=== PATIENT | female | born 1950 | race Caucasian/White ===

== ENCOUNTER 2024-03-15 15:45 | Emergency (ER) | payer MEDICARE, SELFPAY ==
[2024-03-15] VITALS (19 sets, daily range): BP systolic 111–205; BP diastolic 71–120; PULSE 70–91; RESP 18; TEMP 36.9; O2SAT 94–100; BMI 21.6
--- NOTE | 2024-03-15 16:26 | ED_ITS ---
HPI - Skin/Abscess/Foreign Bdy <Chayo Mabry PA-C - Last Filed: 03/15/24 20:00> General Chief complaint: Skin/Abscess/Foreign Body Stated complaint: left pain and infected Time Seen by Provider: 03/15/24 16:18 Source: patient and family Mode of arrival: Wheelchair Limitations: no limitations History of Present Illness HPI narrative: 73-year-old female presents with left knee drainage. Apparently she underwent a total left knee replacement in April [address] Corbin Yun. She ended up having a postsurgical complication and was treated at [facility] with long- term intravenous antibiotics including vancomycin and cefepime respectively. She completed this and then presented at [facility] recently and was given a course of Bactrim 5 days oral. She is denying any fever, any new injury, she has some spontaneous drainage, she does have pain however with weightbear. She recently relocated and is now living with her son in [facility] who has been assisting with her ADLs and general care. History is also significant for hypertension, she did not take her 3 blood pressure medications today. She is denying any other complaints. All other systems are reviewed and are negative. She did bring paperwork from her previous treatment from [facility], with some lab work from February 18 or so. CRP at that time was 20.5, CBC was within normal limits. Chemistry also within normal limits this happened elevation to her alk phos. I further clarified her entire course she stated she saw Dr. Brooks and his automobile mechanic assistant in June 2023, she implied that ?he said it was the worst joint replacement he is ever seen and that the only option would be amputation as that she will never walk again with this joint replacement?. She once again consulted with Dr. Brooks when she was re-evaluated at [facility], and the patient states that ?he would not admit me and no longer wanted to see me again?. The patient also advised that she no longer would like to see Dr. Brooks. Related Data Home Medications Medication Instructions Recorded Confirmed amlodipine 5 mg tablet 10 mg PO DAILY 03/15/24 03/15/24 carvedilol phosphate 40 mg 40 mg PO DAILY 03/15/24 03/15/24 capsule,[id number] multiphase escitalopram oxalate 10 mg tablet 10 mg PO DAILY 03/15/24 03/15/24 irbesartan 300 mg tablet 300 mg PO DAILY 03/15/24 03/15/24 levothyroxine 75 mcg tablet 75 mcg PO DAILY 03/15/24 03/15/24 Previous Rx's Medication Instructions Recorded oxycodone 5 mg tablet 5 mg PO Q6H PRN pain #14 tabs 03/16/24 Allergies Allergy/AdvReac Type Severity Reaction Status Date / Time blue dye Allergy Verified 03/15/24 16:04 Review of Systems <Chayo Mabry PA-C - Last Filed: 03/15/24 20:00> Review of Systems Narrative: All other systems reviewed and are negative. Patient History <Chayo Mabry PA-C - Last Filed: 03/15/24 20:00> Social History Smoking Status: Never smoker Smoking Status: Never smoker Exam <Chayo Mabry PA-C - Last Filed: 03/15/24 20:00> Initial Vital Signs Initial Vital Signs: Vital Signs Temperature 98.4 F 03/15/24 16:04 Pulse Rate 77 03/15/24 16:04 Respiratory Rate 18 03/15/24 16:04 Blood Pressure 187/107 H 03/15/24 16:04 Pulse Oximetry 99 03/15/24 16:04 Oxygen Delivery Method Room Air 03/15/24 16:04 Vital signs reviewed and are normal except for elevated blood pressure reading in a known hypertension patient who has not taken her medications today. Const Other: Smiling, seated, nontoxic appearing, no distress, pleasantly conversing. Unable to bear weight on the left leg. Use of a PT belt utilized for transfer from chair to bed. Chest Chest: normal inspection of the chest Resp Effort & Inspection: normal respiratory effort and able to speak in complete sentences Auscultation: clear to auscultation bilaterally, no rales, no rhonchi and no wheezes Cardio Rate: regular rate Rhythm: regular rhythm Extrem Left lower extremity: knee (Draining cutaneous abscess lateral proximal knee) Details: abnormal to inspection, swelling and abnormal ROM; no cyanosis <Kain Lovett MD - Last Filed: 03/16/24 16:10> Initial Vital Signs Initial Vital Signs: Vital Signs Temperature 98.4 F 03/15/24 16:04 Pulse Rate 77 03/15/24 16:04 Respiratory Rate 18 03/15/24 16:04 Blood Pressure 187/107 H 03/15/24 16:04 Pulse Oximetry 99 03/15/24 16:04 Oxygen Delivery Method Room Air 03/15/24 16:04 <Cristina Quesada DO - Last Filed: 03/16/24 18:44> Initial Vital Signs Initial Vital Signs: Vital Signs Temperature 98.4 F 03/15/24 16:04 Pulse Rate 77 03/15/24 16:04 Respiratory Rate 18 03/15/24 16:04 Blood Pressure 187/107 H 03/15/24 16:04 Pulse Oximetry 99 03/15/24 16:04 Oxygen Delivery Method Room Air 03/15/24 16:04 Course <Chayo Mabry PA-C - Last Filed: 03/15/24 20:00> Orders Ordered: Discontinued Medications Hydrocodone Bitart/Acetaminophen (Hydrocodone/Acet 5/325 Tablet) 1 tab PO NOW ONE Stop: 03/16/24 00:12 Last Admin: 03/16/24 00:31 Dose: 1 tab Documented By: CARLOS Hydrocodone Bitart/Acetaminophen (Hydrocodone/Acet 5/325 Tablet) 1 tab PO NOW ONE Stop: 03/16/24 04:40 Last Admin: 03/16/24 04:44 Dose: 1 tab Documented By: JE Amlodipine Besylate (Amlodipine 5 Mg Tablet) 10 mg PO NOW ONE Stop: 03/15/24 18:02 Last Admin: 03/15/24 18:31 Dose: 10 mg Documented By: CARLOS Carvedilol (Carvedilol 12.5 Mg Tablet) 40 mg PO NOW ONE Stop: 03/15/24 18:19 Last Admin: 03/15/24 18:24 Dose: Not Given Documented By: CARLOS Carvedilol (Carvedilol 12.5 Mg Tablet) 12.5 mg PO NOW JOSH Last Admin: 03/15/24 18:51 Dose: 12.5 mg Documented By: CARLOS Escitalopram Oxalate (Escitalopram 10 Mg Tablet) 10 mg PO NOW ONE Stop: 03/15/24 18:03 Last Admin: 03/15/24 18:51 Dose: 10 mg Documented By: CARLOS Hydromorphone HCl (Hydromorphone 0.5 Mg Inj) 0.5 mg IV NOW ONE Stop: 03/15/24 20:25 Last Admin: 03/15/24 20:34 Dose: 0.5 mg Documented By: CARLOS Vancomycin HCl/Dextrose (Vancomycin) 1,500 mg in 300 mls @ 200 mls/hr IV NOW ONE Stop: 03/15/24 20:59 Last Infusion: 03/15/24 21:45 Dose: Infused Documented By: Admin: 03/15/24 19:59 Dose: 200 mls/hr Documented By: ALBINA Ceftriaxone Sodium 1,000 mg/ (Sodium Chloride) 100 mls @ 200 mls/hr IV NOW ONE Stop: 03/15/24 19:31 Last Infusion: 03/15/24 20:14 Dose: Infused Documented By: Admin: 03/15/24 19:40 Dose: 200 mls/hr Documented By: ALBINA Losartan Potassium (Losartan 50 Mg Tablet) 100 mg PO NOW ONE Stop: 03/15/24 18:31 Last Admin: 03/15/24 18:50 Dose: 100 mg Documented By: CARLOS Oxycodone HCl (Oxycodone Ir 5 Mg Tablet) 5 mg PO NOW ONE Stop: 03/16/24 08:00 Last Admin: 03/16/24 08:21 Dose: 5 mg Documented By: RB Consultations Consultation #1: Discussed the case with on-call orthopedics Dr. Paul who declined to participate in this patient's care stating that she needs to maintain continuity and returned to the original orthopedist, Dr. Brooks. She advise this patient likely needs an complete explant, not to touch or perform I&D of the abscess. Consultation #2: Discussed this complex patient's case with ED attending Dr. Lovett. I initiated antimicrobial therapy tonight including vancomycin 1.5gm and ceftriaxone 1gm IV. I placed a call to [facility] for potential orthopedic consultation. Vital Signs Vital signs: Vital Signs - 8 hr 03/16/24 11:24 Temperature 98.0 F Pulse Rate 78 Respiratory Rate 18 Blood Pressure 114/67 Pulse Oximetry 96 Oxygen Delivery Method Room Air <Kain Lovett MD - Last Filed: 03/16/24 16:10> Orders Ordered: Discontinued Medications Hydrocodone Bitart/Acetaminophen (Hydrocodone/Acet 5/325 Tablet) 1 tab PO NOW ONE Stop: 03/16/24 00:12 Last Admin: 03/16/24 00:31 Dose: 1 tab Documented By: CARLOS Hydrocodone Bitart/Acetaminophen (Hydrocodone/Acet 5/325 Tablet) 1 tab PO NOW ONE Stop: 03/16/24 04:40 Last Admin: 03/16/24 04:44 Dose: 1 tab Documented By: JE Amlodipine Besylate (Amlodipine 5 Mg Tablet) 10 mg PO NOW ONE Stop: 03/15/24 18:02 Last Admin: 03/15/24 18:31 Dose: 10 mg Documented By: CARLOS Carvedilol (Carvedilol 12.5 Mg Tablet) 40 mg PO NOW ONE Stop: 03/15/24 18:19 Last Admin: 03/15/24 18:24 Dose: Not Given Documented By: CARLOS Carvedilol (Carvedilol 12.5 Mg Tablet) 12.5 mg PO NOW JOSH Last Admin: 03/15/24 18:51 Dose: 12.5 mg Documented By: CARLOS Escitalopram Oxalate (Escitalopram 10 Mg Tablet) 10 mg PO NOW ONE Stop: 03/15/24 18:03 Last Admin: 03/15/24 18:51 Dose: 10 mg Documented By: CARLOS Hydromorphone HCl (Hydromorphone 0.5 Mg Inj) 0.5 mg IV NOW ONE Stop: 03/15/24 20:25 Last Admin: 03/15/24 20:34 Dose: 0.5 mg Documented By: CARLOS Vancomycin HCl/Dextrose (Vancomycin) 1,500 mg in 300 mls @ 200 mls/hr IV NOW ONE Stop: 03/15/24 20:59 Last Infusion: 03/15/24 21:45 Dose: Infused Documented By: Admin: 03/15/24 19:59 Dose: 200 mls/hr Documented By: ALBINA Ceftriaxone Sodium 1,000 mg/ (Sodium Chloride) 100 mls @ 200 mls/hr IV NOW ONE Stop: 03/15/24 19:31 Last Infusion: 03/15/24 20:14 Dose: Infused Documented By: Admin: 03/15/24 19:40 Dose: 200 mls/hr Documented By: ALBINA Losartan Potassium (Losartan 50 Mg Tablet) 100 mg PO NOW ONE Stop: 03/15/24 18:31 Last Admin: 03/15/24 18:50 Dose: 100 mg Documented By: CARLOS Oxycodone HCl (Oxycodone Ir 5 Mg Tablet) 5 mg PO NOW ONE Stop: 03/16/24 08:00 Last Admin: 03/16/24 08:21 Dose: 5 mg Documented By: RB Vital Signs Vital signs: Vital Signs - 8 hr 03/16/24 11:24 Temperature 98.0 F Pulse Rate 78 Respiratory Rate 18 Blood Pressure 114/67 Pulse Oximetry 96 Oxygen Delivery Method Room Air <Cristina Quesada, - Last Filed: 03/16/24 18:44> Orders Ordered: Discontinued Medications Hydrocodone Bitart/Acetaminophen (Hydrocodone/Acet 5/325 Tablet) 1 tab PO NOW ONE Stop: 03/16/24 00:12 Last Admin: 03/16/24 00:31 Dose: 1 tab Documented By: SB Hydrocodone Bitart/Acetaminophen (Hydrocodone/Acet 5/325 Tablet) 1 tab PO NOW ONE Stop: 03/16/24 04:40 Last Admin: 03/16/24 04:44 Dose: 1 tab Documented By: JE Amlodipine Besylate (Amlodipine 5 Mg Tablet) 10 mg PO NOW ONE Stop: 03/15/24 18:02 Last Admin: 03/15/24 18:31 Dose: 10 mg Documented By: CARLOS Carvedilol (Carvedilol 12.5 Mg Tablet) 40 mg PO NOW ONE Stop: 03/15/24 18:19 Last Admin: 03/15/24 18:24 Dose: Not Given Documented By: CARLOS Carvedilol (Carvedilol 12.5 Mg Tablet) 12.5 mg PO NOW JOSH Last Admin: 03/15/24 18:51 Dose: 12.5 mg Documented By: CARLOS Escitalopram Oxalate (Escitalopram 10 Mg Tablet) 10 mg PO NOW ONE Stop: 03/15/24 18:03 Last Admin: 03/15/24 18:51 Dose: 10 mg Documented By: CARLOS Hydromorphone HCl (Hydromorphone 0.5 Mg Inj) 0.5 mg IV NOW ONE Stop: 03/15/24 20:25 Last Admin: 03/15/24 20:34 Dose: 0.5 mg Documented By: CARLOS Vancomycin HCl/Dextrose (Vancomycin) 1,500 mg in 300 mls @ 200 mls/hr IV NOW ONE Stop: 03/15/24 20:59 Last Infusion: 03/15/24 21:45 Dose: Infused Documented By: Admin: 03/15/24 19:59 Dose: 200 mls/hr Documented By: ALBINA Ceftriaxone Sodium 1,000 mg/ (Sodium Chloride) 100 mls @ 200 mls/hr IV NOW ONE Stop: 03/15/24 19:31 Last Infusion: 03/15/24 20:14 Dose: Infused Documented By: Admin: 03/15/24 19:40 Dose: 200 mls/hr Documented By: ALBINA Losartan Potassium (Losartan 50 Mg Tablet) 100 mg PO NOW ONE Stop: 03/15/24 18:31 Last Admin: 03/15/24 18:50 Dose: 100 mg Documented By: CARLOS Oxycodone HCl (Oxycodone Ir 5 Mg Tablet) 5 mg PO NOW ONE Stop: 03/16/24 08:00 Last Admin: 03/16/24 08:21 Dose: 5 mg Documented By: RB Vital Signs Vital signs: Vital Signs - 8 hr 03/16/24 11:24 Temperature 98.0 F Pulse Rate 78 Respiratory Rate 18 Blood Pressure 114/67 Pulse Oximetry 96 Oxygen Delivery Method Room Air MDM - Skin/Abscess/Foreign Bdy <Chayo Mabry PA-C - Last Filed: 03/15/24 20:00> Lab Data Lab results narrative: CBC is normal. CMP, ESR elevated at 35, CRP elevated at 17.5, Lactate is normal 0.8, wound culture/gram stain pending, blood cultures pending. 03/15/24 16:50 03/15/24 17:22 Labs: Lab Results 03/15/24 03/15/24 Range/Units 16:50 17:22 WBC 8.3 (4.5-11.0) X10^3/uL RBC 4.30 (4.0-5.2) X10^6/uL Hgb 13.6 (12.0-16.0) g/dL Hct 41.2 (36-46) % MCV 95.9 (80-100) fL MCH 31.6 (26-34) PG MCHC 33.0 (30-36) % RDW 14.5 (11.6-14.8) % Plt Count 361 (150-400) X10^3/uL Neut % (Auto) 73.4 (50-75) % Lymph % (Auto) 11.1 L (25-40) % [place] % (Auto) 13.0 (3-14) % Eos % (Auto) 2.0 (2-4) % Baso % (Auto) 0.5 (0-2) % Neut # (Auto) 6100 (9247-6547) /uL Lymph # (Auto) 900 L (6849-6796) /uL [place] # (Auto) 1100 H (0-900) /uL Eos # (Auto) 200 (0-450) /uL Baso # (Auto) 0 (0-100) /uL ESR 35 H (0-20) MM/HR Sodium 134 L (137-145) mmol/L Potassium 4.5 (3.4-5.1) mmol/L Chloride 102 (98-107) mmol/L Carbon Dioxide 23 (22-32) mmol/L BUN 19 H (7-17) mg/dL Creatinine 0.56 (0.52-1.04) mg/dL Estimated GFR > 60 (>60) mL/min BUN/Creatinine Ratio 33.9 H (6-22) Glucose 90 (80-110) mg/dL Lactate 0.8 (0.7-2.1) mmol/L Calcium 9.4 (8.4-10.2) mg/dL Total Bilirubin 0.6 (0.2-1.3) mg/dL AST 23 (14-36) IU/L ALT 20 (<35) IU/L Alkaline Phosphatase 205 H (38-126) U/L C-Reactive Protein 17.1 H (<1.0) mg/dL Total Protein 7.1 (6.3-8.2) g/dL Albumin 3.9 (3.5-5.0) g/dL Globulin 3.2 (1.7-4.1) g/dL Albumin/Globulin Ratio 1.2 (1.0-2.8) Imaging Data Extremity x-ray #1: My Impression: Visible hardware (patella?) that appears to have migrated and it is in the area of the soft tissue swelling which clinically correlates to the draining abscess on her distal thigh. Per the radiologist there is no interval change with comparison to films dated February 19, 2024. Radiologist's Impression: PROCEDURE: XR KNEE LT 3V INDICATIONS: open wound s/p total knee . R/O septic joint TECHNIQUE: 3 views of the knee were acquired. COMPARISON: Located Within [facility], CR, XR KNEE 3 VIEWS LEFT, 02/19/2024, 12:18. FINDINGS: Bones: Similar appearance of the next knee arthroplasty. Additional circular hardware adjacent to the distal femoral shaft is similar to prior. Soft tissues: Heterotopic ossifications and soft tissue swelling. IMPRESSION: Diffuse soft tissue swelling. No acute osseous abnormality. If there is further concern, consider nuclear medicine bone scan versus cross-sectional imaging. Septic joint cannot be excluded based on imaging alone. Dictated by: Hilario Hargrove M.D. on 03/15/2024 at 17:02 Approved by: Hilario Hargrove M.D. 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 She was last evaluated in February, presenting tonight with some draining from the knee. At no time has she described any fever, chills or any re-injury. She is here with her son whom she now resides with in [facility]. Her history is significant for hypertension and we were able to provide her home medications tonight and her blood pressure did improve, BP now 152/96, HR 80, 99%RA, remains afebrile. Tonight, she was found to have a draining abscess overlying the left knee, wound culture is pending, x-rays show migration of her internal hardware that appears to have been that way since February as comparison was made to previous radiographs. Her CBC was normal, CMP also within normal limits except for a slight elevation in her alk phos which is consistent with the previous lab in February. CRP was elevated at 17.1 (down from 20.5 at [facility] Feb 2024) and her ESR was elevated at 35 (no prior for comparison). Wound culture and blood cultures are pending. I did make contact with call center and spoke with Ivory HAWKINS. She will reach out to orthopedic team and I am hopeful for a call-back tonight. In the meantime, she is covered with vancomycin 1.5 g IV along with ceftriaxone 1 g IV. I discussed this at length with the patient and her son explaining orthopedics and some of the options that might be available to her, we did review possibility of surgical removal of her internal hardware, and the possibility of an above the knee amputation as well as part of restoring overall function. Transfer of care to ED attending Dr. Lovett at 2000hrs. <Kain Lovett MD - Last Filed: 03/16/24 16:10> Lab Data Labs: Lab Results 03/15/24 03/15/24 Range/Units 16:50 17:22 WBC 8.3 (4.5-11.0) X10^3/uL RBC 4.30 (4.0-5.2) X10^6/uL Hgb 13.6 (12.0-16.0) g/dL Hct 41.2 (36-46) % MCV 95.9 (80-100) fL MCH 31.6 (26-34) PG MCHC 33.0 (30-36) % RDW 14.5 (11.6-14.8) % Plt Count 361 (150-400) X10^3/uL Neut % (Auto) 73.4 (50-75) % Lymph % (Auto) 11.1 L (25-40) % [place] % (Auto) 13.0 (3-14) % Eos % (Auto) 2.0 (2-4) % Baso % (Auto) 0.5 (0-2) % Neut # (Auto) 6100 (1761-4430) /uL Lymph # (Auto) 900 L (5406-8558) /uL [place] # (Auto) 1100 H (0-900) /uL Eos # (Auto) 200 (0-450) /uL Baso # (Auto) 0 (0-100) /uL ESR 35 H (0-20) MM/HR Sodium 134 L (137-145) mmol/L Potassium 4.5 (3.4-5.1) mmol/L Chloride 102 (98-107) mmol/L Carbon Dioxide 23 (22-32) mmol/L BUN 19 H (7-17) mg/dL Creatinine 0.56 (0.52-1.04) mg/dL Estimated GFR > 60 (>60) mL/min BUN/Creatinine Ratio 33.9 H (6-22) Glucose 90 (80-110) mg/dL Lactate 0.8 (0.7-2.1) mmol/L Calcium 9.4 (8.4-10.2) mg/dL Total Bilirubin 0.6 (0.2-1.3) mg/dL AST 23 (14-36) IU/L ALT 20 (<35) IU/L Alkaline Phosphatase 205 H (38-126) U/L C-Reactive Protein 17.1 H (<1.0) mg/dL Total Protein 7.1 (6.3-8.2) g/dL Albumin 3.9 (3.5-5.0) g/dL Globulin 3.2 (1.7-4.1) g/dL Albumin/Globulin Ratio 1.2 (1.0-2.8) [facility] Narrative Medical decision making narrative: This kind 73-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 She was last evaluated in February, presenting tonight with some draining from the knee. At no time has she described any fever, chills or any re-injury. She is here with her son whom she now resides with in [facility]. Her history is significant for hypertension and we were able to provide her home medications tonight and her blood pressure did improve, BP now 152/96, HR 80, 99%RA, remains afebrile. Tonight, she was found to have a draining abscess overlying the left knee, wound culture is pending, x-rays show migration of her internal hardware that appears to have been that way since February as comparison was made to previous radiographs. Her CBC was normal, CMP also within normal limits except for a slight elevation in her alk phos which is consistent with the previous lab in February. CRP was elevated at 17.1 (down from 20.5 at [facility] Feb 2024) and her ESR was elevated at 35 (no prior for comparison). Wound culture and blood cultures are pending. I did make contact with call center and spoke with Ivory HAWKINS. She will reach out to orthopedic team and I am hopeful for a call-back tonight. In the meantime, she is covered with vancomycin 1.5 g IV along with ceftriaxone 1 g IV. I discussed this at length with the patient and her son explaining orthopedics and some of the options that might be available to her, we did review possibility of surgical removal of her internal hardware, and the possibility of an above the knee amputation as well as part of restoring overall function. Transfer of care to ED attending Dr. Lovett at 2000hrs. 03/15/2024, Bony Galvan. Signout from DAWOOD Mabry. Awaiting call back for consultation [facility] orthopedic surgery. 73-year-old female with history of remote failed left total knee arthroplasty performed 04/2023 Veronica Nicole, with subsequent previous pyogenic infection, PICC line antibiotics, with draining wound near old left knee arthroplasty, wound culture sent from site, x-ray show migration of internal hardware that apparently he has been present since at least February from comparison radiographs. CBC unremarkable today, CRP 17.7 elevated but decreased from prior comparison February 2024 [facility] records, ESR today 35 without comparisons. Her [facility] orthopedic surgeon had recommended amputation which she has refused, she does not want to see her [facility] orthopedic surgeon. She is seeking alternate orthopedic consultation. IV vancomycin, IV ceftriaxone given here. DAWOOD Mabry spoke with local on-call orthopedic surgery Dr. Parada, who advised transfer to [facility] for higher level of surgical consultation. DAWOOD Mabry had spoken with [facility] intake nurse. Await call back from Orthopedic surgery. [phone], call back from [facility] intake nurse, who had relayed clinical information to on-call orthopedic surgery Dr. Gibson hidalgo, who apparently does not do joint surgery, referred patient to their [facility], advises calling their office during regular hours to arrange follow up via [id number] direct discusiion during open clinic hours. [facility], phone number contact information [phone]. We will relay recommendation to patient, unclear if she wants to wait in the emergency department to have provider to provider contact during their open hours, or if they would like their primary care provider to try to do this tomorrow to make arrangements. 0, discussion with family and patient, relayed recommendation above, which seems occult to accomplish if left to PCP to call from their clinic tomorrow to do a provider to provider communication in any effective fashion. Patient elects to stay here for now, IV antibiotics initiated with vancomycin and ceftriaxone after wound culture sent. We will attempt to communicate directly with some provider in their joint Located within [facility] above during open hours, can initiate call tomorrow Saturday morning during open clinic hours, to coordinate transfer versus close follow up outpatient clinic evaluation there. Patient would like pain medication, we will write for scheduled hydrocodone/APAP overnight as needed. Hydrocodone/APAP for pain control 0700, [facility]ada, for coordination with [facility] (phone [phone]) during open hours later this morning. 03/16/2024 Dr. Quesada: Patient signed out to myself. Patient was seen and evaluated by myself reviewed with patient she had returned to her original orthopedic surgeon who recommended amputation. She then went to [facility] who was seen by Orthopedics but in the emergency department was recommended to go to return to her surgeon. Patient has not been seen since December and has had progressive changes. You was contacted they spoke with on-call orthopedics last night who recommended talking to the joint clinic but there was no individual on-call. Patient has been nontoxic does not appear septic appears her hardware is eroding through the skin there is a little bit of drainage she received IV antibiotics overnight. She was has a increasing pain over time but the knee itself is not red hot or swollen discussed with patient we will chat with the joint clinic this morning to try to come up with a more definitive plan. Spoke with Coordinator, Dr. Arreaga recommended outpatient follow up with joint clinic. Confirmed phone number. They will keep case open in case of transfer. Spoke with [facility]. Spoke with Dr. Phan reviewed patient's history. He asked that we hold off on any antibiotics at this time and they will set up follow up in the short term. <Cristina Quesada, DO - Last Filed: 03/16/24 18:44> Lab Data Labs: Lab Results 03/15/24 03/15/24 Range/Units 16:50 17:22 WBC 8.3 (4.5-11.0) X10^3/uL RBC 4.30 (4.0-5.2) X10^6/uL Hgb 13.6 (12.0-16.0) g/dL Hct 41.2 (36-46) % MCV 95.9 (80-100) fL MCH 31.6 (26-34) PG MCHC 33.0 (30-36) % RDW 14.5 (11.6-14.8) % Plt Count 361 (150-400) X10^3/uL Neut % (Auto) 73.4 (50-75) % Lymph % (Auto) 11.1 L (25-40) % [place] % (Auto) 13.0 (3-14) % Eos % (Auto) 2.0 (2-4) % Baso % (Auto) 0.5 (0-2) % Neut # (Auto) 6100 (7899-3844) /uL Lymph # (Auto) 900 L (9235-6448) /uL [place] # (Auto) 1100 H (0-900) /uL Eos # (Auto) 200 (0-450) /uL Baso # (Auto) 0 (0-100) /uL ESR 35 H (0-20) MM/HR Sodium 134 L (137-145) mmol/L Potassium 4.5 (3.4-5.1) mmol/L Chloride 102 (98-107) mmol/L Carbon Dioxide 23 (22-32) mmol/L BUN 19 H (7-17) mg/dL Creatinine 0.56 (0.52-1.04) mg/dL Estimated GFR > 60 (>60) mL/min BUN/Creatinine Ratio 33.9 H (6-22) Glucose 90 (80-110) mg/dL Lactate 0.8 (0.7-2.1) mmol/L Calcium 9.4 (8.4-10.2) mg/dL Total Bilirubin 0.6 (0.2-1.3) mg/dL AST 23 (14-36) IU/L ALT 20 (<35) IU/L Alkaline Phosphatase 205 H (38-126) U/L C-Reactive Protein 17.1 H (<1.0) mg/dL Total Protein 7.1 (6.3-8.2) g/dL Albumin 3.9 (3.5-5.0) g/dL Globulin 3.2 (1.7-4.1) g/dL Albumin/Globulin Ratio 1.2 (1.0-2.8) MDM Narrative Medical decision making narrative: This kind 73-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 She was last evaluated in February, presenting tonight with some draining from the knee. At no time has she described any fever, chills or any re-injury. She is here with her son whom she now resides with in [facility]. Her history is significant for hypertension and we were able to provide her home medications tonight and her blood pressure did improve, BP now 152/96, HR 80, 99%RA, remains afebrile. Tonight, she was found to have a draining abscess overlying the left knee, wound culture is pending, x-rays show migration of her internal hardware that appears to have been that way since February as comparison was made to previous radiographs. Her CBC was normal, CMP also within normal limits except for a slight elevation in her alk phos which is consistent with the previous lab in February. CRP was elevated at 17.1 (down from 20.5 at [facility] Feb 2024) and her ESR was elevated at 35 (no prior for comparison). Wound culture and blood cultures are pending. I did make contact with call center and spoke with Ivory HAWKINS. She will reach out to orthopedic team and I am hopeful for a call-back tonight. In the meantime, she is covered with vancomycin 1.5 g IV along with ceftriaxone 1 g IV. I discussed this at length with the patient and her son explaining orthopedics and some of the options that might be available to her, we did review possibility of surgical removal of her internal hardware, and the possibility of an above the knee amputation as well as part of restoring overall function. Transfer of care to ED attending Dr. Lovett at 1999hrs. 03/15/2024, 1999, Bony. Signout from DAWOOD Mabry. Awaiting call back for consultation [facility] orthopedic surgery. 73-year-old female with history of remote failed left total knee arthroplasty performed 04/2023 Veronica Nicole, with subsequent previous pyogenic infection, PICC line antibiotics, with draining wound near old left knee arthroplasty, wound culture sent from site, x-ray show migration of internal hardware that apparently he has been present since at least February from comparison radiographs. CBC unremarkable today, CRP 17.7 elevated but decreased from prior comparison February 2024 [facility] records, ESR today 35 without comparisons. Her [facility] orthopedic surgeon had recommended amputation which she has refused, she does not want to see her [facility] orthopedic surgeon. She is seeking alternate orthopedic consultation. IV vancomycin, IV ceftriaxone given here. DAWOOD Mabry spoke with local on-call orthopedic surgery Dr. Parada, who advised transfer to [facility] for higher level of surgical consultation. DAWOOD Mabry had spoken with [facility] intake nurse. Await call back from Orthopedic surgery. 2114, call back from [facility] intake nurse, who had relayed clinical information to on-call orthopedic surgery Dr. Gibson hidalgo, who apparently does not do joint surgery, referred patient to their [facility], advises calling their office during regular hours to arrange follow up via [id number] direct discusiion during open clinic hours. [facility], phone number contact information [phone]. We will relay recommendation to patient, unclear if she wants to wait in the emergency department to have provider to provider contact during their open hours, or if they would like their primary care provider to try to do this tomorrow to make arrangements. 2329, discussion with family and patient, relayed recommendation above, which seems occult to accomplish if left to PCP to call from their clinic tomorrow to do a provider to provider communication in any effective fashion. Patient elects to stay here for now, IV antibiotics initiated with vancomycin and ceftriaxone after wound culture sent. We will attempt to communicate directly with some provider in their [facility] above during open hours, can initiate call tomorrow Saturday morning during open clinic hours, to coordinate transfer versus close follow up outpatient clinic evaluation there. Patient would like pain medication, we will write for scheduled hydrocodone/APAP overnight as needed. Hydrocodone/APAP for pain control 0700, signed out to [facility] ED shift physician Dr. Quesada, for coordination with [facility][note 3] (phone [phone]) during open hours later this morning. 03/16/2024 Dr. Quesada: Patient signed out to myself. Patient was seen and evaluated by myself reviewed with patient she had returned to her original orthopedic surgeon who recommended amputation. She then went to [facility] who was seen by Orthopedics but in the emergency department was recommended to go to return to her surgeon. Patient has not been seen since December and has had progressive changes. You was contacted they spoke with on-call orthopedics last night who [facility] but there was no individual on-call. Patient has been nontoxic does not appear septic appears her hardware is eroding through the skin there is a little bit of drainage she received IV antibiotics overnight. She was has a increasing pain over time but the knee itself is not red hot or swollen discussed with patient we will chat with the joint clinic this morning to try to come up with a more definitive plan. Spoke with Coordinator, Dr. Arreaga recommended outpatient follow up with joint clinic. Confirmed phone number. They will keep case open in case of transfer. Spoke with [facility]. Spoke with Dr. Phan orthopedics reviewed patient's history. He asked that we hold off on any antibiotics at this time and they will set up follow up in the short term. Patient is nontoxic does not appear to have an acutely septic joint patient has hardware that is attempting to erode through and does need urgent follow-up. Discussed I would recommend she see her original orthopedic surgeon but [facility] is willing to see the patient for 2nd opinion as her initial surgeon recommended amputation. Discussed return precautions all questions answered patient feels comfortable this plan she feels much more comfortable currently with the oral pain medication given here in the department. Discharge Plan Departure Patient Disposition: Home Clinical Impression: Failed total knee arthroplasty Qualifiers: Encounter type: initial encounter Qualified Code(s): T84.018A - Broken internal joint prosthesis, other site, initial encounter Abscess of skin or subcutaneous tissue Qualifiers: Site of cutaneous abscess: extremity Site of cutaneous abscess of extremity: l ower extremity Laterality: left Qualified Code(s): L02.416 - Cutaneous abscess of left lower limb Activity Restrictions/Additional Instructions: It appears your hardware is eroding through the skin. You need to see orthopedic surgery included is the contact for [facility] at [phone] to call for follow up and evaluation. They may give the same recommendations as your original orthopedic surgeon. I did talk to Dr. Phan they should be reaching out to you in the next day or so to set up appointment. If you have not from heard from them in the next 24 hours please call the number above. They did ask to hold on antibiotics at this time You can take acetaminophen up to a 1000 mg every 6 hours and/or oxycodone 1-2 tablets every 6 hours as needed for pain. Prescription sent to [facility] in [place]. Please return for fevers, increasing redness, swelling, purulent drainage, or other new or concerning changes. Prescriptions: New oxycodone 5 mg tablet 5 mg PO Q6H PRN (Reason: pain) Qty: 14 0RF No Action amlodipine 5 mg tablet 10 mg PO DAILY carvedilol phosphate 40 mg capsule, ER multiphase 24 hr 40 mg PO DAILY irbesartan 300 mg tablet 300 mg PO DAILY levothyroxine 75 mcg tablet 75 mcg PO DAILY escitalopram oxalate 10 mg tablet 10 mg PO DAILY Stand Alone Forms: Patient Portal/API/Survey
--- NOTE | 2024-03-15 16:36 | DI.RAD.S_ITS ---
PROCEDURE: XR KNEE LT 3V INDICATIONS: open wound s/p total knee [id number]. R/O septic joint TECHNIQUE: 3 views of the knee were acquired. COMPARISON: [facility], , XR KNEE 3 VIEWS LEFT, 02/19/2024, 12:18. FINDINGS: Bones: Similar appearance of the next knee arthroplasty. Additional circular hardware adjacent to the distal femoral shaft is similar to prior. Soft tissues: Heterotopic ossifications and soft tissue swelling. IMPRESSION: Diffuse soft tissue swelling. No acute osseous abnormality. If there is further concern, consider nuclear medicine bone scan versus cross-sectional imaging. Septic joint cannot be excluded based on imaging alone. Dictated by: Hilario Hargrove M.D. on 03/15/2024 at 17:02 Approved by: Hilario Hargrove M.D. on 03/15/2024 at 17:05
[2024-03-15 17:03] LABS: Add Manual Diff / Slide Review NO; Basophils Absolute Auto 0 /uL (0-100); Basophils Percent Auto 0.5 % (0-2); Eosinophils Absolute Auto 200 /uL (0-450); Hematocrit 41.2 % (36-46); Hemoglobin 13.6 g/dL (12.0-16.0); Lymphocytes Absolute Auto 900 /uL (1100-4500); Lymphocytes Percent Auto 11.1 % (25-40); Mean Corpuscular Hemoglobin 31.6 PG (26-34); Mean Corpuscular Volume 95.9 fL (80-100); Monocytes Absolute Auto 1100 /uL (0-900); Neutrophils Absolute Auto 6100 /uL (1500-7000); Neutrophils Percent Auto 73.4 % (50-75); Platelet Count 361 X10^3/uL (150-400); Red Cell Distribution Width 14.5 % (11.6-14.8); White Blood Cell Count 8.3 X10^3/uL (4.5-11.0)
[2024-03-15 17:39] LABS: Lactate (Lactic Acid) 0.8 mmol/L (0.7-2.1)
[2024-03-15 17:43] LABS: Alanine Aminotransferase 20 IU/L (<35); Albumin 3.9 g/dL (3.5-5.0); Albumin Globulin Ratio 1.2 (1.0-2.8); Alkaline Phosphatase 205 U/L (38-126); Aspartate Aminotransferase 23 IU/L (14-36); BUN Creatinine Ratio 33.9 (6-22); Bilirubin Total 0.6 mg/dL (0.2-1.3); Blood Urea Nitrogen 19 mg/dL (7-17); Calcium 9.4 mg/dL (8.4-10.2); Carbon Dioxide 23 mmol/L (22-32); Chloride 102 mmol/L (98-107); Estimated Glomerular Filt Rate > 60 mL/min (>60); Globulin 3.2 g/dL (1.7-4.1); Glucose 90 mg/dL (80-110); HEMOLYSIS < 15 (0-50); Potassium 4.5 mmol/L (3.4-5.1); Sodium 134 mmol/L (137-145); Total Protein 7.1 g/dL (6.3-8.2)
[2024-03-15 17:54] LABS: C-Reactive Protein Quant 17.1 mg/dL (<1.0)
[2024-03-15 18:06] LABS: Erythrocyte Sedimentation Rate 35 MM/HR (0-20)
[2024-03-15] MEDS: AMLODIPINE 5 MG TABLET 10 MG PO (18:31)
[2024-03-15] MEDS: LOSARTAN 50 MG TABLET 100 MG PO (18:50)
[2024-03-15] MEDS: carvediloL 12.5 MG TABLET PO (18:51)
[2024-03-15] MEDS: ESCITALOPRAM 10 MG TABLET PO (18:51)
[2024-03-15] MEDS: cefTRIAXone 1,000 MG in SODIUM CHLORIDE 0.9% 100 ML 200 MG IV (19:40)
[2024-03-15] MEDS: VANCOMYCIN 1,500 MG/300 ML PIGGYBACK 200 MG IV (19:59)
[2024-03-15] MEDS: HYDROMORPHONE 0.5 MG INJ IV (20:34)
[2024-03-16] VITALS (18 sets, daily range): BP systolic 90–144; BP diastolic 56–88; PULSE 68–94; RESP 18; TEMP 36.7; O2SAT 90–100
[2024-03-16] MEDS: HYDROCODONE/ACET 5/325 TABLET 1 TAB PO ×2 (00:31→04:44)
[2024-03-16] MEDS: OXYCODONE IR 5 MG TABLET PO (08:21)
== END 2024-03-16 11:26 | disposition home or self-care (01) ==
PROVIDERS: Physician Assistant Medical; Emergency Provider Emergency Medicine
DX: T84.023A Instability of internal left knee prosthesis, initial encounter (principal); L02.416 Cutaneous abscess of left lower limb; Y79.2 Prosthetic and other implants, materials and accessory orthopedic devices associated with adverse incidents
CPT/HCPCS: 36415; 73562; 80053; 83605; 85025; 85651; 86140; 87040; 87070; 87075; 87077; 87147; 87186; 87205; 96365; 96366; 96367; 96375; 99284; J0696; J1171

== ENCOUNTER 2024-03-24 15:35 | Emergency (ER) | payer MEDICARE, SELFPAY ==
[2024-03-24 15:53] VITALS: BP 147/73; PULSE 74; RESP 17; TEMP 36.1; O2SAT 99; BMI 21.6
--- NOTE | 2024-03-24 18:27 | PC.NURSE ---
Spoke with patient's son who stated he's going to take her down to ER for evaluation and potential treatment for continuity of care because their goal is for treatment by those surgeons and hospitals.
== END 2024-03-24 18:29 | disposition left against medical advice (07) ==
PROVIDERS: Emergency Provider Emergency Medicine; PCP Family Medicine
CPT/HCPCS: 99281